=== PATIENT | male | born 1995 | race Caucasian/White ===

== ENCOUNTER 2017-03-04 12:36 | Emergency (ER) | payer OTHER, BC ==
--- NOTE | 2017-03-04 13:39 | EDM.PDOC ---
ED HPI GENERAL MEDICAL PROBLEM - General Chief Complaint: Upper Extremity Injury/Pain Stated Complaint: RIGHT POINTER FINGER SMASHED WORK RELATED Time Seen by Provider: 03/04/17 12:56 Source of Information: Reports: Patient History Limitations: Reports: No Limitations - History of Present Illness INITIAL COMMENTS - FREE TEXT/NARRATIVE: Presents to the ER reporting that he was at work when he accidentally struck his left hand with a hammer. Now, he has pain, tenderness and swelling in the left index finger and madhav. Left 1-Thumb Pain Score (Numeric/FACES): 6 - Related Data Allergies Allergy/AdvReac Type Severity Reaction Status Date / Time amoxicillin Allergy Itching Verified 03/04/17 12:55 Home Meds: Home Meds Testosterone Cypionate [Testosterone Cypionate] 200 mg PO DAILY 03/04/17 [ History] Past Medical History - Past Health History Medical/Surgical History: Denies Medical/Surgical History - Infectious Disease History Infectious Disease History: Reports: Chicken Pox Social & Family History - Family History Family Medical History: Noncontributory - Tobacco Use Smoking Status *Q: Never Smoker - Caffeine Use Caffeine Use: Reports: Coffee, Energy Drinks, Soda, Tea - Recreational Drug Use Recreational Drug Use: No Review of Systems - Review of Systems Review Of Systems: ROS reveals no pertinent complaints other than HPI. ED EXAM, GENERAL - Physical Exam Exam: See Below Exam Limited By: No Limitations General Appearance: Alert, No Apparent Distress Ears: Normal External Exam Nose: Normal Inspection Throat/Mouth: Normal Inspection Head: Atraumatic, Normocephalic Neck: Normal Inspection Respiratory/Chest: No Respiratory Distress Cardiovascular: Normal Peripheral Pulses GI/Abdominal: Soft Extremities: Other (Left proximal index finger mildly erythematous and swollen. Full range of motion limited by swelling. CMS intact distally) Neurological: Alert, Oriented Psychiatric: Normal Affect, Normal Mood Skin Exam: Warm, Dry, Intact, Normal Color, No Rash Course - Vital Signs Last Recorded V/S: Last Vital Signs Temp 37.0 C 03/04/17 12:56 Pulse 75 03/04/17 12:56 Resp 18 03/04/17 12:56 BP 144/78 H 03/04/17 12:56 Pulse Ox 95 03/04/17 12:56 - Orders/Labs/Meds Orders: Active Orders 24 hr Category Date Time Status Hand 2V Lt [CR] Stat Exams 03/04/17 13:12 Ordered Departure - Departure Time of Disposition: 13:59 Disposition: Home, Self-Care 01 Condition: Good Clinical Impression: Contusion - Discharge Information Referrals: Charlotte Barrett SCIENCE WRITER [Primary Care Provider] - Additional Instructions: 1. Cool pack 20 minutes every 3-4 hours 2. Elevate left hand 3. Splint second finger 4. Start gentle range of motion exercises tomorrow. - My Orders Last 24 Hours: My Active Orders 03/04/17 13:12 Hand 2V Lt [CR] Stat - Assessment/Plan Last 24 Hours: My Active Orders 03/04/17 13:12 Hand 2V Lt [CR] Stat
--- NOTE | 2017-03-04 13:55 | CR ---
EXAMINATION: Left hand HISTORY: Pain COMPARISON: None TECHNIQUE: 2 views FINDINGS/IMPRESSION: There is no acute osseous abnormality, dislocation, or fracture. Bone mineraliza tion and joint spaces appear normal. Mild soft tissue swelling adjacent to the second digit.
== END 2017-03-04 14:25 | disposition home or self-care (01) ==
LOC: MW.ED 12:36
DX: S60.022A Contusion of left index finger without damage to nail, initial encounter (principal); Z88.1 Allergy status to other antibiotic agents; W22.8XXA Striking against or struck by other objects, initial encounter
CPT/HCPCS: 73120-26-LT; 73120-LT; 99282; 99283

== ENCOUNTER 2017-08-26 17:53 | Emergency (ER) | payer BC, OTHER ==
--- NOTE | 2017-08-26 19:15 | EDM.PDOC ---
ED HPI GENERAL MEDICAL PROBLEM - General Chief Complaint: Skin Complaint Stated Complaint: POSSIBLE INFECTION/CHEST AREA Time Seen by Provider: 08/26/17 19:15 Source of Information: Reports: Patient History Limitations: Reports: No Limitations - History of Present Illness INITIAL COMMENTS - FREE TEXT/NARRATIVE: HISTORY AND PHYSICAL: History of present illness: 22-year-old male presenting emerged department with worry of skin infection along incision from surgery. Patient has had a breast reduction surgery and is concerned that there may be an infection. States that near the most anterior area stitch started to come out. He has felt no increased pain, swelling, or purulent discharge but limited to make sure as he did not want an infection. States that he had the surgery done in [place]. He has no other significant symptoms. Review of systems: As per history of present illness and below otherwise all systems reviewed and negative. Past medical history: As per history of present illness and as reviewed below otherwise noncontributory. Surgical history: As per history of present illness and as reviewed below otherwise noncontributory. Social history: No reported history of drug or alcohol abuse. Family history: As per history of present illness and as reviewed below otherwise noncontributory. Physical exam: HEENT: Atraumatic, normocephalic, pupils reactive, negative for conjunctival pallor or scleral icterus, mucous membranes moist, throat clear, neck supple, nontender, trachea midline. Lungs: Clear to auscultation, breath sounds equal bilaterally, chest nontender. Heart: S1S2, regular, negative for clicks, rubs, or JVD. Abdomen: Soft, nondistended, nontender. Negative for masses or hepatosplenomegaly. Negative for costovertebral tenderness. Pelvis: Stable nontender. Genitourinary: Deferred. Rectal: Deferred. Extremities: Atraumatic, negative for cords or calf pain. Neurovascular unremarkable. Neuro: Awake, alert, oriented. Cranial nerves II through XII unremarkable. Cerebellum unremarkable. Motor and sensory unremarkable throughout. Exam nonfocal. Skin: Bilateral lower breast scars from breast reduction surgery. Most anterior there seems to be an area where the stitch spit out. No increased warmth, redness, or pain with palpation. Diagnostics: [] Therapeutics: [] Impression: Stitch irritation Plan: I reassured the patient that this was normal stitch irritation from his body spitting one of the subcutaneous stitches were used to close. There are no signs of infection. I instructed patient to return to emergency department if he had any new or worsening symptoms. He should watch for fever, chills, nausea , vomiting, increased pain, increased redness. Patient was in understanding and is discharged in good condition. Right Chest Pain Score (Numeric/FACES): 2 - Related Data Allergies Allergy/AdvReac Type Severity Reaction Status Date / Time amoxicillin Allergy Itching Verified 03/04/17 12:55 bee venom protein (honey bee) Allergy Hives Verified 08/26/17 18:10 Home Meds: Home Meds Testosterone Cypionate 100 mg PO ASDIRECTED 03/04/17 [History] Past Medical History - Past Health History Medical/Surgical History: Denies Medical/Surgical History - Infectious Disease History Infectious Disease History: Reports: Chicken Pox Social & Family History - Family History Family Medical History: Noncontributory - Tobacco Use Smoking Status *Q: Current Every Day Smoker Years of Tobacco use: 9 Packs/Tins Daily: 1 - Caffeine Use Caffeine Use: Reports: Coffee, Energy Drinks, Soda - Recreational Drug Use Recreational Drug Use: No ED ROS GENERAL - Review of Systems Review Of Systems: See Below ED EXAM, SKIN/RASH Exam: See Below Course - Vital Signs Last Recorded V/S: Last Vital Signs Temp 98.2 F 08/26/17 18:05 Pulse 62 08/26/17 18:05 Resp 18 08/26/17 18:05 BP 138/86 08/26/17 18:05 Pulse Ox 98 08/26/17 18:05 - Orders/Labs/Meds Orders: Active Orders 24 hr Category Date Time Status DRUG SCREEN, URINE [URCHEM] Stat Lab 08/26/17 19:24 Ordered UA W/MICROSCOPIC [URIN] Stat Lab 08/26/17 19:24 Ordered Meds: Medications Discontinued Medications Generic Name Dose Route Start Last Admin Trade Name Freq PRN Reason Stop Dose Admin Al Hydroxide/Mg Hydroxide 15 0 ml 08/26/17 19:23 ml/ Lidocaine HCl 5 ml PO 08/26/17 19:24 ONETIME ONE Ketorolac Tromethamine 60 mg 08/26/17 19:23 Toradol IM 08/26/17 19:24 ONETIME ONE Departure - Departure Time of Disposition: 19:42 Disposition: Home, Self-Care 01 Condition: Good Clinical Impression: Burst stitches - Discharge Information Referrals: PCP,None [Primary Care Provider] - Forms: ED Department Discharge - My Orders Last 24 Hours: My Active Orders 08/26/17 19:24 DRUG SCREEN, URINE [URCHEM] Stat UA W/MICROSCOPIC [URIN] Stat - Assessment/Plan Last 24 Hours: My Active Orders 08/26/17 19:24 DRUG SCREEN, URINE [URCHEM] Stat UA W/MICROSCOPIC [URIN] Stat
[2017-08-26] MEDS ORDERED: Alum Hydrox/Mag Hydrox/Simeth 15 ML, Lidocaine 2% 5 ML PO ONE ×2 (19:23)
[2017-08-26] MEDS: Ketorolac 60 MG/2 ML SDV IM ONE ×2 (19:45→19:47)
== END 2017-08-26 19:55 | disposition home or self-care (01) ==
LOC: MW.ED 17:53
DX: T81.31XA Disruption of external operation (surgical) wound, not elsewhere classified, initial encounter (principal); F17.210 Nicotine dependence, cigarettes, uncomplicated; Z88.1 Allergy status to other antibiotic agents; Z91.030 Bee allergy status; Z98.890 Other specified postprocedural states
CPT/HCPCS: 99282; J1885

== ENCOUNTER 2018-05-24 10:33 | Emergency (ER) | payer BC, OTHER ==
--- NOTE | 2018-05-24 11:01 | EDM.PDOC ---
ED HPI GENERAL MEDICAL PROBLEM - General Chief Complaint: Respiratory Problem Stated Complaint: RESP. INFECTION Time Seen by Provider: 05/24/18 10:49 Source of Information: Reports: Patient History Limitations: Reports: No Limitations - History of Present Illness INITIAL COMMENTS - FREE TEXT/NARRATIVE: HISTORY AND PHYSICAL: History of present illness: Patient is a 22-year-old male here with complaint of cough x 5 days. He has had subjective fevers, chills, body aches, and nausea. Denies vomiting, abdominal pain, diarrhea, chest pain, SOB. Review of systems: As per history of present illness and below otherwise all systems reviewed and negative. Past medical history: As per history of present illness and as reviewed below otherwise noncontributory. Surgical history: As per history of present illness and as reviewed below otherwise noncontributory. Social history: No reported history of drug or alcohol abuse. Family history: As per history of present illness and as reviewed below otherwise noncontributory. Physical exam: General: Patient sitting comfortably in no acute distress and nontoxic appearing HEENT: Atraumatic, normocephalic, pupils reactive, negative for conjunctival pallor or scleral icterus, mucous membranes moist, throat clear, neck supple, nontender, trachea midline. No meningeal signs. Lungs: Clear to auscultation, breath sounds equal bilaterally, chest nontender. Heart: S1S2, regular, negative for clicks, rubs, or overt murmur. Abdomen: Soft, nondistended, nontender. Negative for masses or hepatosplenomegaly. Negative for costovertebral tenderness. Pelvis: Stable nontender. Genitourinary: Deferred. Rectal: Deferred. Extremities: Atraumatic, negative for cords or calf pain. Neurovascular unremarkable. Neuro: Awake, alert, oriented. Cranial nerves II through XII unremarkable. Cerebellum unremarkable. Motor and sensory unremarkable throughout. Exam nonfocal. Notes: Diagnostics: influenza, CXR Therapeutics: None Prescriptions: Ventolin inhaler Impression: Acute bronchitis Plan: 1. Use inhaler as instructed 2. Follow-up with primary care provider 3. Return to ED as needed as discussed Definitive disposition and diagnosis as appropriate pending reevaluation and review of above. - Related Data Allergies Allergy/AdvReac Type Severity Reaction Status Date / Time amoxicillin Allergy Itching Verified 05/24/18 10:53 bee venom protein (honey bee) Allergy Hives Verified 05/24/18 10:53 Home Meds: Home Meds Testosterone Cypionate 100 mg PO ASDIRECTED 03/04/17 [History] Albuterol [Ventolin HFA] 1 puff INH Q4H #1 inhaler 05/24/18 [Rx] Past Medical History - Past Health History Medical/Surgical History: Denies Medical/Surgical History HEENT History: Reports: None Cardiovascular History: Reports: None Respiratory History: Reports: None Gastrointestinal History: Reports: None Genitourinary History: Reports: None Musculoskeletal History: Reports: None Neurological History: Reports: None Psychiatric History: Reports: None Endocrine/Metabolic History: Reports: None Hematologic History: Reports: None Immunologic History: Reports: None Oncologic (Cancer) History: Reports: None Dermatologic History: Reports: None - Infectious Disease History Infectious Disease History: Reports: Chicken Pox - Past Surgical History Head Surgeries/Procedures: Reports: None HEENT Surgical History: Reports: None Cardiovascular Surgical History: Reports: None Respiratory Surgical History: Reports: None GI Surgical History: Reports: None Male Surgical History: Reports: Vasectomy Endocrine Surgical History: Reports: None Neurological Surgical History: Reports: None Musculoskeletal Surgical History: Reports: None Oncologic Surgical History: Reports: None Dermatological Surgical History: Reports: None Social & Family History - Family History Family Medical History: Noncontributory - Caffeine Use Caffeine Use: Reports: None ED ROS GENERAL - Review of Systems Review Of Systems: ROS reveals no pertinent complaints other than HPI. ED EXAM, GENERAL - Physical Exam Exam: See Below (see dictation) Course - Vital Signs Last Recorded V/S: Last Vital Signs Temp 98.1 F 05/24/18 10:50 Pulse 83 05/24/18 10:50 Resp 18 05/24/18 10:50 BP 131/63 05/24/18 10:50 Pulse Ox 97 05/24/18 10:50 - Orders/Labs/Meds Meds: Medications Discontinued Medications Generic Name Dose Route Start Last Admin Trade Name Albin PRN Reason Stop Dose Admin Silver Sulfadiazine 1 gm 05/24/18 11:02 Silvadene 1% Cream 50 Gm TOP 05/24/18 11:03 ONETIME ONE Departure - Departure Time of Disposition: 11:42 Disposition: Home, Self-Care 01 Condition: Good Clinical Impression: Acute bronchitis - Discharge Information Prescriptions: Albuterol [Ventolin HFA] 1 puff INH Q4H #1 inhaler Referrals: Jay Contreras MD [Primary Care Provider] - Forms: ED Department Discharge Additional Instructions: The following information is given to patients seen in the emergency department who are being discharged to home. This information is to outline your options for follow-up care. We provide all patients seen in our emergency department with a follow-up referral. The need for follow-up, as well as the timing and circumstances, are variable depending upon the specifics of your emergency department visit. If you don't have a primary care physician on staff, we will provide you with a referral. We always advise you to contact your personal physician following an emergency department visit to inform them of the circumstance of the visit and for follow-up with them and/or the need for any referrals to a consulting specialist. The emergency department will also refer you to a specialist when appropriate. This referral assures that you have the opportunity for follow-up care with a specialist. All of these measure are taken in an effort to provide you with optimal care, which includes your follow-up. Under all circumstances we always encourage you to contact your private physician who remains a resource for coordinating your care. When calling for follow-up care, please make the office aware that this follow-up is from your recent emergency room visit. If for any reason you are refused follow-up, please contact the [facility] at and asked to speak to the emergency department charge nurse. [facility] [address] [place] [id number] [facility] [address] [place] [id number] 1. Use inhaler as instructed 2. Follow-up with primary care provider 3. Return to ED as needed as discussed
[2018-05-24] MEDS ORDERED: Silver Sulfadiazine 1% Crm 50 GM Tube TOP ONE (11:02)
--- NOTE | 2018-05-24 11:29 | CR ---
INDICATION: cough/sneezing/sob/pain INDICATION: Cough, shortness of breath. TECHNIQUE: Chest 2 views. COMPARISON: None FINDINGS: Cardiovascular and mediastinum: Heart size and vasculature are normal in caliber and appearance. Mediastinum is within normal limits. Lungs and pleural spaces: Lungs are clear. No sign of infiltrate or mass. No sign of pleural effusion. No pneumothorax. Bones and soft tissues: No significant findings. IMPRESSION: Lungs are clear. Dictated by Armond Uriostegui MD @ 05/24/2018 11:27:54 AM Dictated by: Armond Uriostegui MD @ 05/24/2018 11:27:59 (Electronically Signed)
== END 2018-05-24 12:00 | disposition home or self-care (01) ==
LOC: MW.ED 10:33
DX: J20.9 Acute bronchitis, unspecified (principal); Z88.1 Allergy status to other antibiotic agents; Z91.030 Bee allergy status
CPT/HCPCS: 71046; 71046-26; 87804; 99283